=== PATIENT | male | born 1945 | race Caucasian/White ===

== ENCOUNTER → 2019-10-07 | Outpatient (CLI) | payer MEDICARE ==
[~2019-10-07] MED LIST: AGM875T PO; CPR500T PO; PRM12.5SU PR
--- NOTE | 2019-10-07 14:31 | Diagnostic Imaging Report ---
INDICATION: Trauma, pelvic injury. Time of exam 2:00 PM Frontal view of the pelvis was obtained. Femoral acetabular alignment is normal bilaterally. Both femoral heads and necks appear to be intact. Rami are intact. SI joints and symphysis are not widened. No fractures are seen. IMPRESSION: No acute bony abnormality is detected. Dictated by: Dictated on workstation # [id number]
--- NOTE | 2019-10-07 14:31 | Diagnostic Imaging Report ---
INDICATION: Low back injury. Time of exam 2:04 PM Frontal and lateral views of the lumbar spine were obtained. Curvature and alignment is normal. Vertebral body heights are well maintained. No acute compression fracture is detected. There is anterior osteophyte formation L3-L4 level. There are atherosclerotic calcifications within the abdominal aorta. IMPRESSION: Lower lumbar spondylosis. No acute bony abnormality is detected. Dictated by: Dictated on workstation # [id number]
== END ==
LOC: RAD FS 13:53
PROVIDERS: ATTEND Nurse Practitioner Family
DX: S39.92XA Unspecified injury of lower back, initial encounter (principal); S39.93XA Unspecified injury of pelvis, initial encounter; M62.838 Other muscle spasm; M47.816 Spondylosis without myelopathy or radiculopathy, lumbar region
CPT/HCPCS: 72100; 72170

== ENCOUNTER 2019-10-29 05:37 | Outpatient (CLI) | payer MEDICARE ==
[~2019-10-29] VITALS: Ht 182.9 cm; Wt 70.5 kg
[2019-10-29] MEDS ORDERED: LACTATED RINGERS 1,000 ML IV PRN (12:12)
[2019-10-29] MEDS ORDERED: CYCL10TA9 PO (13:26)
[2019-10-30] MEDS ORDERED: PHEN-640 PO (08:42)
[2019-10-30] MEDS ORDERED: SULF1TAB35 PO (08:42)
== END 2019-10-29 13:40 | disposition home or self-care (01) ==
LOC: PREOP 05:37
PROVIDERS: ATTEND Urology
DX: Z01.818 Encounter for other preprocedural examination (principal)

== ENCOUNTER 2019-10-30 06:24 | Day surgery (SDC) | payer MEDICARE, MEDICAID ==
[~2019-10-30] VITALS: Ht 182.9 cm; Wt 70.5 kg
[2019-10-30] VITALS (10 sets, daily range): BP systolic 131–163; BP diastolic 71–99
[~2019-10-30 06:24] MED LIST changes: +CYCL10TA9 PO
[2019-10-30] MEDS ORDERED: ONDANSETRON 4 MG/2 ML (SDV) Z0FRAN ONE (06:50)
[2019-10-30] MEDS ORDERED: proPOfol 200 MG/20 ML (DIPRIVAN) VIAL IV ONE (06:50)
[2019-10-30] MEDS ORDERED: ROCURONIUM 10 MG/ML 5 ML SYRINGE IV ONE (06:50)
[2019-10-30] MEDS ORDERED: LIDOCAINE PF 2% 5 ML (XYLOCAINE) VIAL ONE (06:50)
[2019-10-30] MEDS ORDERED: fentaNYL INJECTION 100 MCG/2 ML AMP ONE (06:51)
[2019-10-30] MEDS ORDERED: MIDAZOLAM 2 MG/2 ML (VERSED) VIAL ONE (06:51)
[2019-10-30] MEDS ORDERED: cefTRIAXone 1,000 MG IV (ROCEPHIN) VIAL ONE ×2 (07:03)
[2019-10-30] MEDS ORDERED: WATER (STERILE) FOR INJECTION 10 ML ONE (07:04)
[2019-10-30] MEDS ORDERED: LACTATED RINGERS 1,000 ML IV PRN (07:08)
--- NOTE | 2019-10-30 07:12 | Progress Note-Pre Operative ---
Pre-Operative Progress Note H&P Reviewed The H&P was reviewed, patient examined and no changes noted. Date Seen by Provider: Oct 30, 2019 Time Seen by Provider: 07:11 Date H&P Reviewed: Oct 30, 2019 Time H&P Reviewed: 07:11 Pre-Operative Diagnosis: LARGE BLADDER TUMOR MARY GRACE TAVAREZ MD Oct 30, 2019 07:12
--- NOTE | 2019-10-30 07:14 | Progress Note-Post Operative ---
Post-Operative Progess Note Surgeon (s)/Auto Vinyl Top Installer (s) Surgeon MARY GRACE TAVAREZ MD Auto Vinyl Top Installer: NONE Pre-Operative Diagnosis LARGE BLADDER TUMOR Post-Operative Diagnosis SAME Procedure & Operative Findings Date of Procedure 10/30/19 Procedure Performed/Findings TURBT Anesthesia Type GENERAL Estimated Blood Loss Estimated blood loss (mL): LESS THAN 50CC Specimens/Packing Specimens Removed BLADDER TUMOR CHIPS AND BASES Packing: NONE MARY GRACE TAVAREZ MD Oct 30, 2019 07:14
[2019-10-30] MEDS ORDERED: ceFAZolin 2 GM IV Premixed 50 ML IV ONE (07:15)
[2019-10-30] MEDS ORDERED: cefTRIAXone 1,000 MG/SWFI 10 ML IV PUSH IV ONE ×2 (07:15)
--- NOTE | 2019-10-30 07:15 | Discharge Inst-Urology ---
Discharge Inst-Urology Reconcile Patient Problems Problems Reviewed?: Yes Final Diagnosis LARGE BLADDER Patient Instructions/Follow Up Plan/Assessment/Instructions Please make appointment to been seen in office in 2 weeks. Rest for 48 hours Increase oral fluids for 48 hours and then as needed. Diet as tolerated. If questions or concerns contact your physician Or seek help at emergency department. MARY GRACE TAVAREZ MD Oct 30, 2019 07:15
[2019-10-30] MEDS ORDERED: SEVOFLURANE (ULTANE) 15 ML INHAL SOLN ONE (08:14)
[2019-10-30] MEDS ORDERED: GLYCOPYRROLATE 0.2 MG/ML (ROBINUL) 2 ML VIAL ONE (08:22)
[2019-10-30] MEDS ORDERED: NEOSTIGMINE 3 MG/3 ML VIAL ONE (08:22)
[2019-10-30] MEDS ORDERED: PHEN-640 PO (08:42)
[2019-10-30] MEDS ORDERED: SULF1TAB35 PO (08:42)
[2019-10-30] MEDS ORDERED: ONDANSETRON 4 MG/2 ML (SDV) Z0FRAN IVP PRN (08:45)
[2019-10-30] MEDS ORDERED: morphine INJ 10 MG/ML 1ML (SYR OR VIAL) IVP ONE (08:45)
--- NOTE | 2019-10-30 08:58 | Anesthesia-General Post-Op ---
General Patient Condition Mental Status/LOC: Same as Preop Cardiovascular: Satisfactory Nausea/Vomiting: Absent Respiratory: Satisfactory Pain: Controlled Complications: Absent Post Op Complications Complications None Follow Up Care/Instructions Patient Instructions None needed. Anesthesia/Patient Condition Patient Condition Patient is doing well, no complaints, stable vital signs, no apparent adverse anesthesia problems. No complications reported per nursing. MAELIA GONZALEZ WELDER FITTER APPRENTICE Oct 30, 2019 08:58
--- NOTE | 2019-10-30 11:11 | OPERATIVE REPORT ---
DATE OF SERVICE: 10/30/2019 PREOPERATIVE DIAGNOSIS: Large bladder tumor. POSTOPERATIVE DIAGNOSIS: Large bladder tumor. OPERATION PERFORMED: Transurethral resection of bladder tumor. SURGEON: Mary Grace Tavarez MD. ANESTHESIA: General. COMPLICATIONS: None. DESCRIPTION OF PROCEDURE: Under satisfactory general anesthesia, the patient in lithotomy position, genitalia were prepped and draped in the usual sterile fashion. Urethra was dilated with Daniella sound to #30-Icelandic to accommodate a 27-Icelandic Arroyo resectoscope. Again, visualized the large papillary tumor occupying the left distal lateral half of the bladder and over the ureteral orifice, which could not be visualized at any time. I went ahead and resected the whole tumor, obtained several bites from the base and sent them separately. Bleeders were cauterized and hemostasis was complete as no need for catheter. There was no further bladder tumor. Estimated blood loss was less than 50 mL, none of which was replaced. The patient tolerated the procedure and anesthesia well and was sent to recovery room in stable condition. Job ID: [id number] DocumentID: [id number] Dictated Date: 10/30/2019 08:42:38 Clinical Quality Manager Date: 10/30/2019 11:09:16 Dictated By: MARY GRACE TAVAREZ MD
== END 2019-10-30 10:30 | disposition home or self-care (01) ==
LOC: SDC 06:24
PROVIDERS: ATTEND Urology
DX: C67.9 Malignant neoplasm of bladder, unspecified (principal); F17.210 Nicotine dependence, cigarettes, uncomplicated
CPT/HCPCS: 87081; 88307

== ENCOUNTER 2019-11-02 18:55 | Emergency (ER) | payer MEDICARE, MEDICAID ==
[~2019-11-02] VITALS: Ht 182.9 cm; Wt 70.5 kg
[~2019-11-02 18:55] MED LIST changes: +PHEN-640 PO; +SULF1TAB35 PO
[2019-11-02 19:05] VITALS: BP 119/85
--- NOTE | 2019-11-02 19:06 | ED GU-Male ---
General Stated Complaint: UNABLE TO URINATE History of Present Illness Date Seen by Provider: Nov 02, 2019 Time Seen by Provider: 19:01 Initial Comments 74-year-old male presents because his urinary catheter is not draining. Patient on Monday had a bladder surgery. On Monday which was yesterday he had a catheter placed because he was having difficulty with urination. Reports that he was draining urine at this morning. Since then he has not been able to having urine drain. He started to get full feeling in have pain. He has no nausea vomiting fevers chills or other systemic complaints. Allergies and Home Medications Allergies Coded Allergies: No Known Drug Allergies (Verified , 10/12/07) Home Medications Cyclobenzaprine HCl 10 Mg Tablet, 10 MG PO TID PRN for MUSCLE SPASMS, (Reported) Phenazopyridine HCl 200 Mg Tablet, 1 TAB PO TID PRN for PAIN-MILD (1-4) Prescribed by: KYLAH ADAMS on 10/30/19841 Sulfamethoxazole/Trimethoprim 1 Each Tablet, 1 EACH PO BID Prescribed by: KYLAH ADAMS on 10/30/19 0842 Patient Home Medication List Home Medication List Reviewed: Yes Review of Systems Review of Systems Constitutional: No chills, No fever Respiratory: no symptoms reported Cardiovascular: no symptoms reported Gastrointestinal: no symptoms reported Genitourinary: see HPI Musculoskeletal: no symptoms reported Skin: no symptoms reported Past Luvzrfl-Pzhhly-Dnnlcr Hx Past Med/Social Hx: Reviewed Nursing Past Med/Soc Hx Patient Social History Type Used: Cigarettes Recent Hopitalizations: No Immunizations Up To Date Tetanus Booster (TDap): More than 5yrs Date of Influenza Vaccine: Dec 13, 2018 Seasonal Allergies Seasonal Allergies: No Past Medical History Surgeries: Yes (LEFT ELBOW (1965).) Respiratory: No Currently Using CPAP: No Currently Using BIPAP: No Cardiac: No Neurological: No Reproductive Disorders: No Genitourinary: Yes (large bladder tumor) Gastrointestinal: No Musculoskeletal: Yes Arthritis, Chronic Back Pain Endocrine: No HEENT: No Cancer: No Psychosocial: No Integumentary: No Blood Disorders: No Physical Exam Vital Signs Capillary Refill : Height, Weight, BMI Height: '" Weight: lbs. oz. kg; 21.07 BMI Method: General Appearance: WD/WN, no apparent distress Cardiovascular: normal peripheral pulses, regular rate, rhythm Respiratory: chest non-tender, lungs clear Gastrointestinal: tenderness (suprapubic) Male: other (Lord catheter in place) Extremities: normal range of motion, non-tender Neurologic/Psychiatric: alert, normal mood/affect, oriented x 3 Skin: normal color, warm/dry Progress/Results/Core Measures Suspected Sepsis SIRS Temperature: Pulse: Respiratory Rate: Blood Pressure / Mean: Results/Orders Vital Signs/I&O Capillary Refill : Departure Impression Primary Impression: Obstructed Lord catheter Qualified Codes: T83.091A - Other mechanical complication of indwelling urethral catheter, initial encounter Disposition: 01 HOME, SELF-CARE Condition: Stable Departure-Patient Inst. Referrals: [facility] (PCP/Family) Primary Care Physician Patient Instructions: How to Care for Your Lord Catheter, Male KEILY HERNANDEZ DO Nov 02, 2019 19:06
== END 2019-11-02 19:41 | disposition home or self-care (01) ==
LOC: EDUNIT# 18:55 → ER FS 18:57
DX: T83.091A Other mechanical complication of indwelling urethral catheter, initial encounter (principal)
CPT/HCPCS: 99282

== ENCOUNTER 2019-11-05 23:50 | Emergency (ER) | payer MEDICARE, MEDICAID ==
[~2019-11-05] VITALS: Ht 182.9 cm; Wt 71.4 kg
[2019-11-06 00:02] VITALS: BP 149/73
[2019-11-06] MEDS ORDERED: TMSL.4C PO (00:10)
--- NOTE | 2019-11-06 00:10 | ED GU-Female ---
General Chief Complaint: - Urinary Stated Complaint: UNABLE TO URINATE Source: patient Exam Limitations: no limitations History of Present Illness Date Seen by Provider: Nov 06, 2019 Time Seen by Provider: 00:06 Initial Comments Patient presents with inability to urinate for the past several hours. History of present illness patient had a bladder biopsy about a week ago with a Lord catheter inserted then which was removed this morning. Since this morning has had increasing difficulty urinating progressing to tonight being unable to urinate and feeling pressure in his lower abdomen. Denies fever or chills, nausea vomiting. Is taking an antibiotic currently and followed by urology. Allergies and Home Medications Allergies Coded Allergies: No Known Drug Allergies (Verified , 10/12/07) Home Medications Cyclobenzaprine HCl 10 Mg Tablet, 10 MG PO TID PRN for MUSCLE SPASMS, (Reported) Phenazopyridine HCl 200 Mg Tablet, 1 TAB PO TID PRN for PAIN-MILD (1-4) Prescribed by: KYLAH ADAMS on 10/30/19 0842 Sulfamethoxazole/Trimethoprim 1 Each Tablet, 1 EACH PO BID Prescribed by: KYLAH ADAMS on 10/30/19 0842 Tamsulosin HCl 0.4 Mg Cap, 0.4 MG PO DAILY Prescribed by: LIBERTY PALAFOX on 11/06/19 0010 Patient Home Medication List Home Medication List Reviewed: Yes Review of Systems Review of Systems Constitutional: see HPI; No dizziness, No fever, No malaise, No weakness Respiratory: No cough, No dyspnea on exertion Cardiovascular: No chest pain, No edema, No palpitations Gastrointestinal: abdominal pain; No nausea, No vomiting Genitourinary: see HPI, pain, urgency Musculoskeletal: No back pain, No joint pain Past Aqlbxxo-Thtxsz-Uhgfci Hx Past Med/Social Hx: Reviewed Nursing Past Med/Soc Hx Patient Social History Alcohol Use: Denies Use Recreational Drug Use: No Smoking Status: Current Everyday Smoker Type Used: Cigarettes Recent Foreign Travel: No Contact w/Someone Who Travel: No Recent Hopitalizations: No Physical Abuse: No Sexual Abuse: No Mistreated: No Fear: No Immunizations Up To Date Tetanus Booster (TDap): More than 5yrs Date of Influenza Vaccine: Dec 13, 2018 Seasonal Allergies Seasonal Allergies: No Past Medical History Surgeries: Yes (LEFT ELBOW (1965).) Respiratory: No Currently Using CPAP: No Currently Using BIPAP: No Cardiac: No Neurological: No Reproductive Disorders: No Genitourinary: Yes (large bladder tumor) Gastrointestinal: No Musculoskeletal: Yes Arthritis, Chronic Back Pain Endocrine: No HEENT: No Cancer: No Psychosocial: No Integumentary: No Blood Disorders: No Physical Exam Vital Signs Vital Signs - First Documented 11/06/19 00:02 Temp 36.3 Pulse 68 Resp 18 B/P (MAP) 149/73 (98) Pulse Ox 99 O2 Delivery Room Air Capillary Refill : Height, Weight, BMI Height: '" Weight: lbs. oz. kg; 21.00 BMI Method: General Appearance: WD/WN, no apparent distress Cardiovascular: regular rate, rhythm, no edema, no gallop Respiratory: chest non-tender, lungs clear, normal breath sounds Gastrointestinal: normal bowel sounds, soft; No distended, No guarding, No rebound; tenderness (mild suprapubic) Progress/Results/Core Measures Suspected Sepsis SIRS Temperature: Pulse: Respiratory Rate: Blood Pressure / Mean: Results/Orders My Orders Orders - LIBERTY PALAFOX DO Urinalysis (11/05/19 23:56) Catheter(Urinary) Insert & Ass 03,15 (11/06/19 00:05) Vital Signs/I&O 11/06/19 00:02 Temp 36.3 Pulse 68 Resp 18 B/P (MAP) 149/73 (98) Pulse Ox 99 O2 Delivery Room Air Capillary Refill : Progress Note : Progress Note bladder scan with 1000cc. post void residual > 1 liter, monica urine without clots significant relief p Cath insertion Discussed Urology follow-up. Pt agrees and comprehends Departure Impression Primary Impression: Bladder outlet obstruction Disposition: 01 HOME, SELF-CARE Condition: Improved Departure-Patient Inst. Decision time for Depature: 00:09 Referrals: [facility] (PCP/Family) Primary Care Physician Patient Instructions: Urinary Obstruction (DC) Add. Discharge Instructions: Call Dr Ruiz's office tomorrow to notify them of your ER visit for inability to urinate and that we needed to insert a catheter for you. Schedule a follow up appointment with them to have your catheter removed. All discharge instructions reviewed with patient and/or family. Voiced understanding. Scripts Tamsulosin HCl (Flomax) 0.4 Mg Cap 0.4 MG PO DAILY, #30 CAP Prov: ROVENSTINE,LIBERTY L DO 11/06/19 LIBERTY PALAFOX DO Nov 06, 2019 00:10
[2019-11-06 00:44] LABS: BACTERIA,URINE TRACE /HPF; BILIRUBIN,URINE NEGATIVE (NEGATIVE); CLARITY,URINE CLEAR; COLOR,URINE YELLOW; GLUCOSE, URINE (UA) NEGATIVE (NEGATIVE); KETONES,URINE NEGATIVE (NEGATIVE); LEUKOCYTE ESTERASE ,URINE TRACE (NEGATIVE); NITRITE,URINE NEGATIVE (NEGATIVE); PROTEIN,URINE NEGATIVE (NEGATIVE)
== END 2019-11-06 00:35 | disposition home or self-care (01) ==
LOC: EDUNIT# 23:50 → ER FS 23:52
DX: N32.0 Bladder-neck obstruction (principal); F17.210 Nicotine dependence, cigarettes, uncomplicated
CPT/HCPCS: 51702; 81000; 87088

== ENCOUNTER → 2020-02-13 | Outpatient (CLI) | payer MEDICARE, MEDICAID ==
[~2020-02-13] MED LIST changes: +TMSL.4C PO
--- NOTE | 2020-02-13 11:22 | Diagnostic Imaging Report ---
CT Lung Screening INDICATION: Screening for lung cancer, 60 pack year history of smoking, current smoker. TECHNIQUE: Noncontrast, low-dose CT imaging performed according to the lung cancer screening protocol. Auto Exposure Controls were utilize during the CT exam to meet ALARA standards for radiation dose reduction. COMPARISON: None available. FINDINGS: A few calcified mediastinal and hilar lymph nodes are present. No definite pathologically enlarged lymph nodes within the chest. Mild scattered vascular calcifications. No aneurysmal dilatation of the thoracic aorta. The heart is within normal limits in size. No pericardial effusion. No pleural effusion. No pneumothorax. Minimal left lower lobe scarring and/or atelectasis. Mild biapical pleural parenchymal scarring. Calcified granuloma within the medial aspect of the right upper lobe. Minimal right basilar scarring and/or atelectasis. The minimally visualized upper abdomen is unremarkable. No acute osseous abnormality with mild scattered osseous degenerative changes. IMPRESSION: No acute abnormality. No suspicious pulmonary nodule or opacity. LUNG-RADS CATEGORY:1: Negative Follow-up: Continued annual screening with low-dose CT in 12 months. Dictated by: Dictated on workstation # [id number]
== END ==
LOC: RAD 09:18
PROVIDERS: ATTEND Family Medicine
DX: Z12.2 Encounter for screening for malignant neoplasm of respiratory organs (principal); F17.210 Nicotine dependence, cigarettes, uncomplicated

== ENCOUNTER 2021-11-27 18:48 | Emergency (ER) | payer MEDICARE, MEDICAID ==
[~2021-11-27] VITALS: Ht 182.8 cm; Wt 73.0 kg
[~2021-11-27 18:48] MED LIST changes: +CYCL10TA25 PO; -CYCL10TA9 PO; -SULF1TAB35 PO; +SULF1TAB38 PO
--- NOTE | 2021-11-27 19:11 | ED Lower Extremity ---
General Chief Complaint: Lower Extremity Stated Complaint: WC RT KNEE PAIN Source: patient Exam Limitations: no limitations History of Present Illness Date Seen by Provider: Nov 27, 2021 Time Seen by Provider: 18:49 Initial Comments 76-year-old male with no pertinent past medical history coming in due to right knee pain. He was working at [employer], pushing carts, when he felt a sharp severe pain in his right medial knee., Comes and goes quickly when it occurs. It is worse with walking, better with rest. Has not taken any medicine for it as of yet. Denies ever having pain like this before. Denies falling or hitting his knee. He is unsure if he twisted it somehow. Otherwise denying any other acute complaints. Allergies and Home Medications Allergies Coded Allergies: No Known Drug Allergies (Verified , 10/12/07) Patient Home Medication List Home Medication List Reviewed: Yes Cyclobenzaprine HCl (Cyclobenzaprine HCl) 10 Mg Tablet, 10 MG PO TID PRN for MUSCLE SPASMS, (Reported) Entered as Reported by: CASIE MALONEY on 10/29/19 1326 Phenazopyridine HCl (Pyridium) 200 Mg Tablet, 1 TAB PO TID PRN for PAIN-MILD (1- 4) Prescribed by: KYLAH ADAMS on 10/30/19 0842 Sulfamethoxazole/Trimethoprim (Bactrim Ds Tablet) 1 Each Tablet, 1 EACH PO BID Prescribed by: KYLAH ADAMS on 10/30/19 0842 Tamsulosin HCl (Flomax) 0.4 Mg Cap, 0.4 MG PO DAILY Prescribed by: LIBERTY PALAFOX on 11/06/19 0010 Review of Systems Constitutional: no symptoms reported EENTM: no symptoms reported Respiratory: no symptoms reported Cardiovascular: no symptoms reported Genitourinary: no symptoms reported Musculoskeletal: see HPI Skin: no symptoms reported Psychiatric/Neurological: No Symptoms Reported All Other Systems Reviewed Negative Unless Noted: Yes Past Hjxifgp-Htlqwo-Uvtseu Hx Patient Social History Tobacco Use?: Yes Tobacco type used: Cigarettes Smoking Status: Current Everyday Smoker Smokeless Tobacco Frequency: Unknown if Ever Used Use of E-Cig and/or Vaping dev: No Use of E-Cig and/or Vaping Norberto: Never a User Substance use?: No Alcohol Use?: No Immunizations Up To Date Tetanus Booster (TDap): More than 5yrs Influenza Vaccine Up-to-Date: No; Not Current First/Initial COVID19 Vaccinat: Date? Second COVID19 Vaccination Jacques: Date? COVID19 Vaccine Correctional [employer]al: Oscar Seasonal Allergies Seasonal Allergies: No Past Medical History Surgery/Hospitalization HX: Elbow surgery, Bladder cyst removal Surgeries: Yes (LEFT ELBOW (1964).) Respiratory: No Currently Using CPAP: No Currently Using BIPAP: No Cardiac: No Neurological: No Reproductive Disorders: No Genitourinary: Yes (large bladder tumor) Gastrointestinal: No Musculoskeletal: Yes Arthritis, Chronic Back Pain Endocrine: No HEENT: No Cancer: No Psychosocial: No Integumentary: No Blood Disorders: No Physical Exam Vital Signs Vital Signs - First Documented 11/27/21 18:51 Temp 36.8 Pulse 80 Resp 18 B/P (MAP) 109/64 (79) Pulse Ox 98 O2 Delivery Room Air Capillary Refill : Height, Weight, BMI Height: '" Weight: lbs. oz. kg; 21.00 BMI Method: General Appearance: WD/WN, no apparent distress HEENT: PERRL/EOMI, normal ENT inspection, pharynx normal Neck: non-tender, full range of motion, supple, normal inspection Cardiovascular: regular rate, rhythm, no edema, no murmur Respiratory: chest non-tender, lungs clear, normal breath sounds, no respiratory distress, no accessory muscle use Gastrointestinal: normal bowel sounds, non tender, soft; No distended, No guarding, No rebound Hips: bilateral hip non-tender, bilateral hip normal inspection, bilateral hip normal range of motion, bilateral hip no evidence of injury Legs: bilateral leg non-tender, bilateral leg normal inspection, bilateral leg normal range of motion, bilateral leg no evidence of injury Knees: left knee non-tender; bilateral knee normal inspection, bilateral knee normal range of motion; right knee bone tenderness (Medial joint line tenderness on the right knee, normal ACL, PCL, LCL, MCL testing, antalgic gait) Neurologic/Tendon: normal sensation, normal motor functions, normal tendon functions Neurologic/Psychiatric: no motor/sensory deficits, alert, normal mood/affect Skin: normal color, warm/dry Lymphatic: no adenopathy Progress/Results/Core Measures Results/Orders My Orders Orders - TAHIRA TAO MD Knee 3 View Right (11/27/21 19:04) Acetaminophen Tablet (Tylenol Tablet) (11/27/21 19:15) Medications Given in ED Current Medications Medications Dose Ordered Sig/Zohra Route Start Time Stop Time Status Last Admin Dose Admin Acetaminophen 1,000 mg ONCE ONCE PO 11/27/21 19:15 11/27/21 19:16 DC 11/27/21 19:20 1,000 MG Vital Signs/I&O 11/27/21 11/27/21 18:51 19:20 Temp 36.8 36.8 Pulse 80 Resp 18 B/P (MAP) 109/64 (79) Pulse Ox 98 O2 Delivery Room Air Progress Progress Note : Progress Note 76-year-old male with above history coming in due to right medial knee pain after pushing carts at work at [employer] ABCs were intact and vitals were stable on presentation. Physical exam with medial joint line tenderness. X-ray ordered and interpreted by me showing very mild medial joint space narrowing. Differential for his pain could be strain versus arthritis versus meniscal tear versus some other etiology. X-ray does not show any fracture or dislocation. Given Tylenol for pain. He will need to follow-up with orthopedics for clearance, but I discussed if he feels up to it he can go back to work on Monday when he is next scheduled. Diagnostic Imaging Diagonstic Imaging: Xray (right knee) Comments NAME: MILAGROS COOK [facility] REC#: [id number] PT STATUS: REG ER : 1945 PHYSICIAN: TAHIRA TAO MD ADMIT DATE: 11/27/21/ER FS Draft Date of Exam:11/27/21 KNEE 3 VIEW RIGHT EXAM: Knee 3 view right. INDICATION: Right medial knee pain. COMPARISON: None. FINDINGS: No fracture or malalignment. No right knee joint effusion. Vascular calcifications. IMPRESSION: No acute radiographic finding in the right knee. Dictated on workstation # [id number] Dict: 11/27/211923 Trans: 11/27/211927 PJE [id number] Interpreted by: BLAISE SHIN MD Electronically signed by: Departure Impression Primary Impression: Right knee pain Qualified Codes: M25.561 - Pain in right knee Disposition: 01 HOME, SELF-CARE Condition: Stable Departure-Patient Inst. Decision time for Depature: 19:25 Referrals: JASON ABDI MD (PCP) Primary Care Physician Patient Instructions: Knee Pain ED Add. Discharge Instructions: Follow-up with [facility] here in town regarding your pain. Use the Denis bandage as needed for pressure to help with the pain. Also you can take ibuprofen and/or Tylenol as needed. Work/School Note: Work Release Form Date Seen in the Emergency Department: Nov 27, 2021 Return to Work: Dec 01, 2021 Restrictions: Need Release from Doctor Other Restrictions Listed Below: If pain is gone, ok to work on 12/01, otherwise will need ortho clearance TAHIRA TAO MD Nov 27, 2021 19:11
[2021-11-27] MEDS ORDERED: ACETAMINOPHEN 500 MG TAB (TYLENOL) PO ONE (19:15)
--- NOTE | 2021-11-27 19:29 | Diagnostic Imaging Report ---
EXAM: Knee 3 view right. INDICATION: Right medial knee pain. COMPARISON: None. FINDINGS: No fracture or malalignment. No right knee joint effusion. Vascular calcifications. IMPRESSION: No acute radiographic finding in the right knee. Dictated by: Dictated on workstation # [id number]
[2021-11-27 19:30] VITALS: BP 109/64
== END 2021-11-27 19:30 | disposition home or self-care (01) ==
LOC: EDUNIT# 18:48 → ER FS 18:49
DX: M25.561 Pain in right knee (principal); F17.210 Nicotine dependence, cigarettes, uncomplicated; X58.XXXA Exposure to other specified factors, initial encounter; Y93.89 Activity, other specified; Y92.512 Supermarket, store or market as the place of occurrence of the external cause; Y99.0 Civilian activity done for income or pay
CPT/HCPCS: 73562

== ENCOUNTER 2022-03-12 20:32 | Emergency (ER) | payer MEDICARE, MEDICAID ==
[2022-03-12 20:51] VITALS: BP 135/95
--- NOTE | 2022-03-12 20:52 | ED EENT ---
History of Present Illness General Chief Complaint: Foreign Body Stated Complaint: FOREIGN OBJECT INRIGHT EAR Source: patient History of Present Illness Date Seen by Provider: Mar 12, 2022 Time Seen by Provider: 20:37 Initial Comments 76 yo male presents with complaints of the tip from his hearing aid coming off and getting stuck in his left ear. he had tried removing it at home but kept pushing it further in and against his eardrum. he stopped because it was hurting. He denies having any drainage from his ear, fever, chills, cough. He had no family members around anybody else to try to get the tip out of his ear canal. Location: ear (L) Prearrival Treatment: other (Attempted to remove with tweezers) Associated Symptoms: change in hearing (Decreased hearing since his hearing aid is not in place); No cough, No drooling, No ear drainage, No facial pain/swelling, No fever, No malaise, No nasal congestion/drainage, No poor fluid intake, No poor solids intake, No sinus infection, No sore throat, No tooth pain, No voice change Allergies and Home Medications Allergies Coded Allergies: No Known Drug Allergies (Verified , 10/12/07) Patient Home Medication List Home Medication List Reviewed: Yes Cyclobenzaprine HCl (Cyclobenzaprine HCl) 10 Mg Tablet, 10 MG PO TID PRN for MUSCLE SPASMS, (Reported) Entered as Reported by: CASIE MALONEY on 10/29/19 1326 Phenazopyridine HCl (Pyridium) 200 Mg Tablet, 1 TAB PO TID PRN for PAIN-MILD (1- 4) Prescribed by: KYLAH ADAMS on 10/30/19 0842 Sulfamethoxazole/Trimethoprim (Bactrim Ds Tablet) 1 Each Tablet, 1 EACH PO BID Prescribed by: KYLAH ADAMS on 10/30/19 0842 Tamsulosin HCl (Flomax) 0.4 Mg Cap, 0.4 MG PO DAILY Prescribed by: LIBERTY PALAFOX on 11/06/19 0010 Review of Systems Review of Systems Constitutional: No chills, No fever Eyes: No Symptoms Reported Ears: See HPI Nose: no symptoms reported All Other Systems Reviewed Negative Unless Noted: Yes (Negative excepted noted.) Past Gogubdb-Ogutsx-Gkrjjz Hx Patient Social History Tobacco Use?: No Use of E-Cig and/or Vaping dev: No Substance use?: No Alcohol Use?: No Immunizations Up To Date Tetanus Booster (TDap): More than 5yrs First/Initial COVID19 Vaccinat: Date? Second COVID19 Vaccination Jacques: Date? Seasonal Allergies Seasonal Allergies: No Past Medical History Surgery/Hospitalization HX: Elbow surgery, Bladder cyst removal, Hard of hearing Surgeries: Yes (LEFT ELBOW (1964).) Respiratory: No Currently Using CPAP: No Currently Using BIPAP: No Cardiac: No Neurological: No Reproductive Disorders: No Genitourinary: Yes (large bladder tumor) Gastrointestinal: No Musculoskeletal: Yes Arthritis, Chronic Back Pain Endocrine: No HEENT: No Cancer: No Psychosocial: No Integumentary: No Blood Disorders: No Physical Exam Vital Signs Vital Signs - First Documented 03/12/22 20:38 Temp 37.0 Pulse 87 Resp 18 B/P (MAP) 135/95 (108) Pulse Ox 100 O2 Delivery Room Air Height, Weight, BMI Height: '" Weight: lbs. oz. kg; 21.00 BMI Method: General Appearance: WD/WN, no apparent distress Ears: left ear foreign body (white rubber tip from his hearing aid in canal on left side, hard dry cerumen against TM ) Neurologic/Psychiatric: alert, oriented x 3 Skin: normal color, warm/dry Procedures/Interventions I&D : Site: left external auditory canal Progress Using a pair of alligator forceps the ear was stabilized and retraction placed on the pinna to help open his canal and advanced the forceps. I was able to grasp the tip of the hearing aid and remove it easily with the alligator forceps. He had no active bleeding. He did have dry cerumen against his TM. Patient tolerated procedure well without any immediate complication. Progress/Results/Core Measures Results/Orders Vital Signs/I&O 03/12/22 03/12/22 20:38 20:51 Temp 37.0 37.0 Pulse 87 87 Resp 18 18 B/P (MAP) 135/95 (108) 135/95 Pulse Ox 100 100 O2 Delivery Room Air Room Air Progress Progress Note : Progress Note Patient at risk of having diagnosis with ruptured TM, external auditory canal infection, cerumen impaction. On physical exam he did have a small rubber tip from as hearing aid present in the external auditory canal on the left. This was easily removed without any immediate complications using alligator forceps. He tolerated the removal well without any immediate complication. He had no bleeding or signs of trauma after removal. He did have some dry cerumen against his TM. Counseled on follow-up and return precautions. Advised not to use the tip that was retrieved as it seemed to be loose when reattached to his hearing aid. Departure Impression Primary Impression: Foreign body in ear Qualified Codes: T16.2XXA - Foreign body in left ear, initial encounter Disposition: HOME, SELF-CARE Condition: Stable Departure-Patient Inst. Decision time for Depature: 20:51 Referrals: JASON ABDI MD (PCP) Primary Care Physician [facility] (Family) Primary Care Physician Patient Instructions: Foreign Body in Ear Add. Discharge Instructions: Try a different tip on your hearing aid to see if it would have a tighter fit. Follow up with clinic for continued problems with the device and ear wax build up. All discharge instructions reviewed with patient and/or family. Voiced understanding. TWILA MADDOX MD Mar 12, 2022 20:52
== END 2022-03-12 20:53 | disposition home or self-care (01) ==
LOC: EDUNIT# 20:32 → ER FS 20:36
DX: T16.2XXA Foreign body in left ear, initial encounter (principal); Z28.310 Unvaccinated for COVID-19; X58.XXXA Exposure to other specified factors, initial encounter
CPT/HCPCS: 99281

== ENCOUNTER 2022-07-11 10:55 | Emergency (ER) | payer MEDICARE, MEDICAID ==
[~2022-07-11] VITALS: Ht 180.3 cm; Wt 66.7 kg
[2022-07-11 10:59] VITALS: BP 128/85
--- NOTE | 2022-07-11 11:05 | ED EENT ---
History of Present Illness General Stated Complaint: LT EAR FOREIGN OBJECT History of Present Illness Date Seen by Provider: July 11, 2022 Time Seen by Provider: 11:00 Initial Comments 76-year-old gentleman has a plastic tip of a hearing aid stuck in his left ear. He reports that his dog jumped up on him and knocked his hearing aid out and the rubber piece got stuck in it. Patient denies any other complaints Allergies and Home Medications Allergies Coded Allergies: No Known Drug Allergies (Verified , 10/12/07) Patient Home Medication List Home Medication List Reviewed: Yes Cyclobenzaprine HCl (Cyclobenzaprine HCl) 10 Mg Tablet, 10 MG PO TID PRN for MUSCLE SPASMS, (Reported) Entered as Reported by: CASIE MALONEY on 10/29/19 1326 Phenazopyridine HCl (Pyridium) 200 Mg Tablet, 1 TAB PO TID PRN for PAIN-MILD (1- 4) Prescribed by: KYLAH ADAMS on 10/30/19 0842 Sulfamethoxazole/Trimethoprim (Bactrim Ds Tablet) 1 Each Tablet, 1 EACH PO BID Prescribed by: KYLAH ADAMS on 10/30/19 0842 Tamsulosin HCl (Flomax) 0.4 Mg Cap, 0.4 MG PO DAILY Prescribed by: LIBERTY PALAFOX on 11/06/19 0010 Review of Systems Review of Systems Constitutional: No chills, No fever Ears: See HPI Nose: no symptoms reported Mouth: no symptoms reported Throat: no symptoms reported Respiratory: no symptoms reported Cardiovascular: no symptoms reported Gastrointestinal: no symptoms reported Musculoskeletal: no symptoms reported Past Fegmyfu-Zchfes-Nmlzpg Hx Immunizations Up To Date Tetanus Booster (TDap): More than 5yrs First/Initial COVID19 Vaccinat: Date? Second COVID19 Vaccination Jacques: Date? Seasonal Allergies Seasonal Allergies: No Past Medical History Surgery/Hospitalization HX: Elbow surgery, Bladder cyst removal, Hard of hearing Surgeries: Yes (LEFT ELBOW (1964).) Respiratory: No Currently Using CPAP: No Currently Using BIPAP: No Cardiac: No Neurological: No Reproductive Disorders: No Genitourinary: Yes (large bladder tumor) Gastrointestinal: No Musculoskeletal: Yes Arthritis, Chronic Back Pain Endocrine: No HEENT: No Cancer: No Psychosocial: No Integumentary: No Blood Disorders: No Physical Exam Vital Signs Vital Signs - First Documented 07/11/22 10:59 Temp 36.5 Pulse 70 Resp 16 B/P (MAP) 128/85 (99) O2 Delivery Room Air Height, Weight, BMI Height: '" Weight: lbs. oz. kg; 21.00 BMI Method: General Appearance: WD/WN, no apparent distress Ears: left ear foreign body (Soft rubber tip hearing aid) Cardiovascular: normal peripheral pulses, regular rate, rhythm Respiratory: no respiratory distress, no accessory muscle use Procedures/Interventions Ear : Ear Location: Left Use of: Forceps (Alligator) Progress/Conclusion Soft rubber tip of hearing aid removed with by alligator clamp without any difficulty. Progress/Results/Core Measures Results/Orders Vital Signs/I&O 07/11/22 10:59 Temp 36.5 Pulse 70 Resp 16 B/P (MAP) 128/85 (99) O2 Delivery Room Air Progress Progress Note : Progress Note Soft rubber tip of a hearing aid was removed with no difficulty with alligator forceps. Patient tolerated well. He is stable and discharged home Departure Impression Primary Impression: Foreign body in ear Qualified Codes: T16.2XXA - Foreign body in left ear, initial encounter Disposition: HOME, SELF-CARE Condition: Stable Departure-Patient Inst. Referrals: JASON ABDI MD (PCP) Primary Care Physician [facility] (Family) Primary Care Physician Patient Instructions: Removal of Foreign Body in Ear, Child Add. Discharge Instructions: Follow-up with your primary care provider as needed KEILY HERNANDEZ DO July 11, 2022 11:05
== END 2022-07-11 11:21 | disposition home or self-care (01) ==
LOC: EDUNIT# 10:55 → ER FS 10:58
DX: T16.2XXA Foreign body in left ear, initial encounter (principal); Z28.310 Unvaccinated for COVID-19
CPT/HCPCS: 99281

== ENCOUNTER 2023-01-17 19:31 | Observation (INO) | payer MEDICARE, MEDICAID ==
[~2023-01-17] VITALS: Ht 183 cm; Wt 66.8 kg
[2023-01-17 19:45] LABS: BASOPHILS % (AUTO) 0 % (0-10); EOSINOPHILS # (AUTO) 0.1 10^3/uL (0.0-0.3); EOSINOPHILS % (AUTO) 2 % (0-10); HEMATOCRIT 39 % (40-54); HEMOGLOBIN 13.1 g/dL (13.3-17.7); LYMPHOCYTES # (AUTO) 1.9 10^3/uL (1.0-4.0); LYMPHOCYTES % (AUTO) 24 % (12-44); MEAN CORPUSCULAR HEMOGLOBIN 32 pg (25-34); MEAN CORPUSCULAR HGB CONC 33 g/dL (32-36); MEAN CORPUSCULAR VOLUME 95 fL (80-99); MEAN PLATELET VOLUME 9.6 fL (9.0-12.2); MONOCYTES # (AUTO) 0.6 10^3/uL (0.0-1.0); MONOCYTES % (AUTO) 8 % (0-12); NEUTROPHILS # (AUTO) 5.2 10^3/uL (1.8-7.8); NEUTROPHILS % (AUTO) 66 % (42-75); PLATELET COUNT 201 10^3/uL (130-400); WHITE BLOOD COUNT 7.8 10^3/uL (4.3-11.0)
[2023-01-17] MEDS ORDERED: KETOROLAC INJ 15 MG/ML VIAL IVP STA (19:46)
[2023-01-17] MEDS ORDERED: fentaNYL INJECTION 100 MCG/2 ML VIAL IVP STA (19:46)
[2023-01-17] MEDS ORDERED: PANTOPRAZOLE INJECTION 40 MG VIAL IV STA (19:46)
[2023-01-17] MEDS ORDERED: NS IV 1000 ML 1,000 ML IV STA ×2 (19:46→22:34)
[2023-01-17 20:04] LABS: POTASSIUM 3.7 MMOL/L (3.6-5.0)
[2023-01-17 20:05] LABS: PROTHROMBIN TIME PATIENT 13.4 SEC (12.2-14.7)
[2023-01-17 20:09] LABS: ALANINE AMINOTRANSFERASE 10 U/L (0-55); ALBUMIN 4.1 GM/DL (3.2-4.5); ALKALINE PHOSPHATASE 75 U/L (40-136); BILIRUBIN,TOTAL 0.4 MG/DL (0.1-1.0); BUN/CREATININE RATIO 12; CALCIUM 8.8 MG/DL (8.5-10.1); CARBON DIOXIDE 28 MMOL/L (21-32); CHLORIDE 104 MMOL/L (98-107); CREATININE SERUM 0.82 MG/DL (0.60-1.30); GFR ESTIMATED 92; GLUCOSE 191 MG/DL (70-105); SODIUM 139 MMOL/L (135-145); TOTAL PROTEIN 6.7 GM/DL (6.4-8.2)
--- NOTE | 2023-01-17 20:09 | ED GI ---
General Chief Complaint: Abdominal/GI Problems Stated Complaint: ABD PAIN Nursing Triage Note: Patient to ER via [facility] c/o abdominal pain. Patient states the pain near umbilicus started approx 1330. pain is constant and "feels like a sledgehammer hitting me." Patient states he has had nausea, diarrhea, and sweating with the pain. 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 18RAC. Patient alert and oriented x4 Source of Information: Patient, EMS History of Present Illness Date Seen by Provider: Jan 17, 2023 Time Seen by Provider: 19:32 Initial Comments 77-year-old male presenting by EMS from home with complaints of epigastric abdominal pain. He states that he had nausea and diarrhea. This started around 130 this afternoon. He states he has not eaten anything today as nothing sounds good. He denies any prior surgery on his abdomen. He rates his pain at a 10 out of 10. He does drink alcohol as a can of beer nightly. He denies any radiation of the pain and states it feels like someone hit him in the gut with a sledgehammer. The pain again does not radiate or move anywhere. He denies having pain like this previously. He did receive Zofran and fentanyl by EMS but continued to complain of pain as 10 out of 10 on arrival to the ED. Timing/Duration: 4-6 Hours Severity/Quality: Severe, Other (Like he was hit with a sledgehammer) Location: Epigastric Radiation: No Radiation Activities at Onset: None Associated Symptoms: No Back Pain, No Chest Pain, No Diaphoresis, No Fever/Chills, No Fatigue, No Headache, No Heartburn; Nausea/Vomiting (Nausea but no vomiting); No Shortness of Air, No Swelling/Mass in Abdomen, No Syncope, No Weakness Allergies and Home Medications Allergies Coded Allergies: No Known Drug Allergies (Verified , 10/12/07) Patient Home Medication List Home Medication List Reviewed: Yes Cyclobenzaprine HCl (Cyclobenzaprine HCl) 10 Mg Tablet, 10 MG PO TID PRN for MUSCLE SPASMS, (Reported) Entered as Reported by: CASIE MALONEY on 10/29/19 1326 Phenazopyridine HCl (Pyridium) 200 Mg Tablet, 1 TAB PO TID PRN for PAIN-MILD (1- 4) Prescribed by: KYLAH ADAMS on 10/30/19 0842 Sulfamethoxazole/Trimethoprim (Bactrim Ds Tablet) 1 Each Tablet, 1 EACH PO BID Prescribed by: KYLAH ADAMS on 10/30/19 0842 Tamsulosin HCl (Flomax) 0.4 Mg Cap, 0.4 MG PO DAILY Prescribed by: LIBERTY PALAFOX on 11/06/19 0010 Review of Systems Review of Systems Constitutional: No chills, No fever EENTM: No Symptoms Reported Respiratory: No Symptoms Reported Cardiovascular: No Symptoms Reported Gastrointestinal: See HPI Genitourinary: No Symptoms Reported Musculoskeletal: no symptoms reported Skin: no symptoms reported Psychiatric/Neurological: No Symptoms Reported Past Yjitcrp-Vaduds-Ghmrrj Hx Patient Social History Tobacco Use?: Yes Tobacco type used: Cigarettes Smoking Status: Current Everyday Smoker Substance use?: No Alcohol Use?: Yes Alcohol type: Beer Alcohol Frequency: Daily Immunizations Up To Date Tetanus Booster (TDap): More than 5yrs First/Initial COVID19 Vaccinat: Date? Second COVID19 Vaccination Jacques: Date? Third COVID19 Vaccination Date: Date? Seasonal Allergies Seasonal Allergies: No Past Medical History Surgery/Hospitalization HX: Elbow surgery, Bladder cyst removal, Hard of hearing Surgeries: Yes (LEFT ELBOW (1965).) Respiratory: No Currently Using CPAP: No Currently Using BIPAP: No Cardiac: No Neurological: No Reproductive Disorders: No Genitourinary: Yes (large bladder tumor) Gastrointestinal: No Musculoskeletal: Yes Arthritis, Chronic Back Pain Endocrine: No HEENT: No Cancer: No Psychosocial: No Integumentary: No Blood Disorders: No Physical Exam Vital Signs Vital Signs - First Documented 01/17/23 19:31 Temp 34.3 Pulse 43 Resp 16 B/P (MAP) 167/67 (100) Pulse Ox 99 O2 Delivery Room Air Capillary Refill : Less Than 3 Seconds Height/Weight/BMI Height: '" Weight: lbs. oz. kg; 20.00 BMI Method: General Appearance: WD/WN, no apparent distress HEENT: PERRL/EOMI Respiratory: chest non-tender, lungs clear, normal breath sounds, no respiratory distress, no accessory muscle use Cardiovascular: normal peripheral pulses, regular rate, rhythm Gastrointestinal: normal bowel sounds, soft, no pulsatile mass; No distended, No guarding, No rebound; tenderness (Epigastric) Extremities: normal range of motion, non-tender, normal capillary refill Neurologic/Psychiatric: alert, oriented x 3 Skin: normal color, warm/dry Focused Exam Lactate Level 01/17/23 21:05: Lactic Acid Level 1.52 Lactic Acid Level Laboratory Tests Test 01/17/23 21:05 Lactic Acid Level 1.52 MMOL/L (0.50-2.00) Progress/Results/Core Measures Results/Orders Lab Results Laboratory Tests Test 01/17/23 19:34 01/17/23 21:05 Range/Units White Blood Count 7.8 4.3-11.0 10^3/uL Red Blood Count 4.14 L 4.30-5.52 10^6/uL Hemoglobin 13.1 L 13.3-17.7 g/dL Hematocrit 39 L 40-54 % Mean Corpuscular Volume 95 80-99 fL Mean Corpuscular Hemoglobin 32 25-34 pg Mean Corpuscular Hemoglobin Concent 33 32-36 g/dL Red Cell Distribution Width 12.5 10.0-14.5 % Platelet Count 201 130-400 10^3/uL Mean Platelet Volume 9.6 9.0-12.2 fL Immature Granulocyte % (Auto) 0 % Neutrophils (%) (Auto) 66 42-75 % Lymphocytes (%) (Auto) 24 12-44 % Monocytes (%) (Auto) 8 0-12 % Eosinophils (%) (Auto) 2 0-10 % Basophils (%) (Auto) 0 0-10 % Neutrophils # (Auto) 5.2 1.8-7.8 10^3/uL Lymphocytes # (Auto) 1.9 1.0-4.0 10^3/uL Monocytes # (Auto) 0.6 0.0-1.0 10^3/uL Eosinophils # (Auto) 0.1 0.0-0.3 10^3/uL Basophils # (Auto) 0.0 0.0-0.1 10^3/uL Immature Granulocyte # (Auto) 0.0 0.0-0.1 10^3/uL Prothrombin Time 13.4 12.2-14.7 SEC INR Comment 1.0 0.8-1.4 Activated Partial Thromboplast Time 27 24-35 SEC Sodium Level 139 135-145 MMOL/L Potassium Level 3.7 3.6-5.0 MMOL/L Chloride Level 104 98-107 MMOL/L Carbon Dioxide Level 28 21-32 MMOL/L Anion Gap 7 5-14 MMOL/L Blood Urea Nitrogen 10 7-18 MG/DL Creatinine 0.82 0.60-1.30 MG/DL Estimat Glomerular Filtration Rate 92 BUN/Creatinine Ratio 12 Glucose Level 191 H 70-105 MG/DL Calcium Level 8.8 8.5-10.1 MG/DL Corrected Calcium 8.7 8.5-10.1 MG/DL Total Bilirubin 0.4 0.1-1.0 MG/DL Aspartate Amino Transf (AST/SGOT) 15 5-34 U/L Alanine Aminotransferase (ALT/SGPT) 10 0-55 U/L Alkaline Phosphatase 75 40-136 U/L Troponin I < 0.30 <0.30 NG/ML Pro-B-Type Natriuretic Peptide 52.2 <450.0 PG/ML Total Protein 6.7 6.4-8.2 GM/DL Albumin 4.1 3.2-4.5 GM/DL Lipase 20 8-78 U/L Serum Alcohol < 10 <10 MG/DL Lactic Acid Level 1.52 0.50-2.00 MMOL/L My Orders Orders - TWILA MADDOX MD Comprehensive Metabolic Panel (01/17/23 19:35) Lipase (01/17/23 19:35) Ua Culture If Indicated (01/17/23 19:35) Ed Iv/Invasive Line Start (01/17/23 19:35) Cbc And Automated Diff (01/17/23 19:35) Ct Abdomen/Pelvis W (01/17/23 19:35) Lactic Acid Analyzer (01/17/23:35) Protime With Inr (01/17/23 19:35) Partial Thromboplastin Time (01/17/23:35) Ekg Tracing (01/17/23:35) Troponin I Fs (01/17/23 19:35) Probnp Fs (01/17/23:35) Ketorolac Injection (Ketorolac Injection (01/17/23 19:46) Pantoprazole Injection (Pantoprazole Inj (01/17/23 19:46) Fentanyl Injection (Fentanyl Injection (01/17/23 19:46) Ns Iv 1000 Ml (Ns Iv 1000 Ml) (01/17/23 19:46) Alcohol (01/17/23 19:46) Hydromorphone Injection (Hydromorphone (01/17/23 21:15) Piperacillin/Tazobactam (Piperacillin/Ta (01/17/23 21:57) Ns Iv 1000 Ml (Ns Iv 1000 Ml) (01/17/23 22:28) Ns Iv 1000 Ml (Ns Iv 1000 Ml) (01/17/23 22:34) Ed Admission (Communication) (01/17/23 22:49) Vital Signs/I&O 01/17/23 19:31 Temp 34.3 Pulse 43 Resp 16 B/P (MAP) 167/67 (100) Pulse Ox 99 O2 Delivery Room Air Blood Pressure Mean: 100 Progress Progress Note #1: Progress Note Differential diagnosis includes myocardial infarction, AAA, pancreatitis, cholecystitis, diverticulitis, appendicitis, colitis, gastritis. Peripheral IV established by EMS. Draw labs for complete blood count, comprehensive metabolic profile, coagulation factors, lipase, alcohol level, urinalysis. Electrocardiogram to look for signs of ischemia. Placed on cardiac monitor car operator. Initial interpretation of cardiac telemetry is showing sinus bradycardia with heart rate in the 45-[address] scan of the abdomen and pelvis with IV contrast to evaluate for possible pathology causing his abdominal pain. Since he was still rating his pain 10 out of 10 and ordered another 50 mcg of fentanyl, 15 mg of Toradol, 40 mg of Protonix and normal saline 1 L IV fluid bolus for hydration. Progress Note #2: Time: 21:00 Progress Note Complete blood count had a normal white blood cell count of 7.8. Hemoglobin low normal at 13.1. Comprehensive metabolic profile did not show any acute electrolyte abnormalities other than mild elevation of the glucose to 191. Troponin was less than 0.3. Lipase was negative at 20. Alcohol level was also negative at less than 10. Coagulation factors were normal and not showing coagulopathy. After medications for pain patient reported his pain was down to a [address] scan report of the abdomen pelvis with IV contrast. Progress Note #3: Time: 21:35 Progress Note Patient reports that his pain was back up to a 10 out of 10. Ordered Dilaudid 0.[address] scan of the abdomen and pelvis did come back showing no definite signs for cholecystitis or appendicitis. He did have diffuse edema and fluid in the mesentery concerning for mesenteric congestion. He also had some edema of the small intestines with fluid filled bowel loops. Concerning for en teritis. With his pain getting severe again I will reach out to on-call surgeon, Dr. Maldonado. Lactic acid is still pending at this time. [address] Maldonado, the on-call surgeon. With patient having a normal lactic acid of 1.5 and normal white blood cell count of 7.8 but having edema and fluid in the mesentery and concern for possible ischemic bowel I discussed the case with Dr. Maldonado. He reviewed the images himself. He agreed that if the patient was having ischemic bowel that the patient should have severe abdominal pain with exam as well. At this point the patient is complaining of a 10 out of 10 but does not seem in more distress when palpating his abdomen and pelvis. He also was not having any elevation of the white blood cell count or lactic acid considering his pain started after 130 this afternoon. By now these levels should have been greatly elevated if he was having ischemic bowel. Since there was some delayed findings for enteritis he recommended admission overnight as an observation to the medicine team with him consulting. He recommended continuing IV fluids for hydration, pain and nausea control, Zos yn for possible enteritis. If his pain and symptoms are worsening instead of improving then he could be taken for an exploratory laparotomy. If his symptoms were improving and his labs continue to be stable then he could probably be treated for enteritis. [address] Mills, the on-call hospitalist. Reviewed patient presentation and history as well as concerns for ischemic bowel. Dr. Maldonado recommended admission as an observation patient for pain control and continued fluids and nausea control. Will order Zosyn to help with possible enteritis. If his pain and symptoms are worsening instead of improving then he might require an exploratory laparotomy to look into his pain in further detail. If his symptoms improved then he could hopefully be discharged home. She accepted him for observation admission to the [facility] floor. Initial ECG Impression Date: Jan 17, 2023 Initial ECG Impression Time: 19:33 Initial ECG Rate: 41 Initial ECG Rhythm: S.Anup Initial ECG Comparisson: Changed (10/12/2007 sinus rhythm with heart rate in the 71 range instead of the bradycardia as he has tonight.) Comment My initial interpretation and review his electrocardiogram shows sinus bradycardia with a heart rate 41 bpm. ME interval [address] elevation. He does have Q waves in the inferior leads. QT interval 516 ms with a QTc interval 453 ms. Overall he does have a change from prior tracing done October 12, 2007 when he was sinus rhythm with a heart rate in the 70s. Diagnostic Imaging Diagonstic Imaging: CT Plain Films/CT/US/NM/MRI: abdomen, pelvis Comments NAME: MILAGROS COOK [facility] REC#: [id number] PT STATUS: REG ER : 1945 PHYSICIAN: TWILA MADDOX MD ADMIT DATE: 01/17/23/ER FS Draft Date of Exam:01/17/23 CT ABDOMEN/PELVIS W PROCEDURE: CT abdomen and pelvis with contrast. TECHNIQUE: Multiple contiguous axial images were obtained through the abdomen and pelvis after administration of intravenous contrast. Auto Exposure Controls were utilized during the CT exam to meet ALARA standards for radiation dose reduction. All CT scans use one or more of the following dose optimizing techniques: automated exposure control, MA and/or KvP adjustment based on patient size and exam type or iterative reconstruction. INDICATION: 77-year-old male with epigastric pain and abdominal pain COMPARISONS: None FINDINGS: Lung bases show patchy right basilar infiltrates. No confluent consolidations are seen. There is no effusion or pneumothorax. Cardiac contour is normal. Liver shows uniform attenuation. Gallbladder, spleen, GE junction, stomach and duodenal sweep are unremarkable. Pancreas shows sharp margins. Adrenals are normal. Kidneys show a 2.6 cm Bosniak classification 2 cyst on the right. There is symmetrical perfusion of contrast. There is no evidence of obstructive uropathy. Both ureters are seen intermittently through their course and appear unremarkable. Filled bladder shows 2 separate nodular density along the dome. There is diffuse mesenteric edema with fluid stranding throughout the mesentery. Fluid-filled loops of small bowel with segmental mucosal thickening. There is also fecal material and gas in the colon. The descending colon is mostly decompressed. There is no free air or adenopathy. There is an ectatic mid abdominal aorta measuring 3.1 cm. Nonaneurysmal calcifications extend to the iliac and femoral arteries. Bone windows show no overall gross abnormalities. IMPRESSION: 1. No evidence of cholecystitis or obstructive uropathy. There is also no definite evidence of appendicitis. 2. There is diffuse edema with fluid in the mesentery with possible mesenteric venous congestion. 3. There is segmental mucosal thickening of the small bowel as well as some liquid stool in the proximal large bowel suggesting element of enteritis. 4. Ectatic aorta measuring 3.1 cm in diameter but no evidence of aneurysm. 5. Two separate nodular densities along the dome of the bladder, with the largest measuring approximately 1.8 cm. Correlation with cystoscopy would be of further value. Additional nonemergent findings as described above. Dictated on workstation # [id number] Dict: 01/17/232112 Trans: 01/17/232122 [facility] [id number] Interpreted by: ALEX LARRY MD Electronically signed by: Reviewed: Reviewed by Me Departure Communication (Admissions) Time/Spoke to Admitting Phy: 22:[address] Mills, the on-call hospitalist. Reviewed patient presentation and history as well as concerns for ischemic bowel. Dr. Maldonado recommended admission as an observation patient for pain control and continued fluids and nausea control. Will order Zosyn to help with possible enteritis. If his pain and symptoms are worsening instead of improving then he might require an exploratory laparotomy to look into his pain in further detail. If his symptoms improved then he could hopefully be discharged home. She accepted him for observation admission to the [facility] floor. Time/Spoke to Consulting Phy: 21:[address] Maldonado, the on-call surgeon. With patient having a normal lactic acid of 1.5 and normal white blood cell count of 7.8 but having ed sarai and fluid in the mesentery and concern for possible ischemic bowel I discussed the case with Dr. Maldonado. He reviewed the images himself. He agreed that if the patient was having ischemic bowel that the patient should have severe abdominal pain with exam as well. At this point the patient is complaining of a 10 out of 10 but does not seem in more distress when palpating his abdomen and pelvis. He also was not having any elevation of the white blood cell count or lactic acid considering his pain started after 130 this afternoon. By now these levels should have been greatly elevated if he was having ischemic bowel. Since there was some delayed findings for enteritis he recommended admission overnight as an observation to the medicine team with him consulting. He recommended continuing IV fluids for hydration, pain and nausea control, Zosyn for possible enteritis. If his pain and symptoms are worsening instead of improving then he could be taken for an exploratory laparotomy. If his symptoms were improving and his labs continue to be stable then he could probably be treated for enteritis. Impression Primary Impression: Epigastric abdominal pain Additional Impressions: Enteritis Diarrhea Qualified Codes: R19.7 - Diarrhea, unspecified Disposition: 30 STILL A PATIENT Condition: Stable Admissions Decision to Admit Reason: Admit from ER (General) Decision to Admit/Date: Jan 17, 2023 Time/Decision to Admit Time: 22:00 Departure-Patient Inst. Referrals: JASON ABDI MD (PCP) Primary Care Physician [facility] (Family) Primary Care Physician TWILA MADDOX MD Jan 17, 2023 20:08
[2023-01-17 20:10] LABS: LIPASE 20 U/L (8-78)
[2023-01-17] MEDS ORDERED: HYDROmorphone INJECTION 2 MG/ML VIAL IV STA (21:15)
--- NOTE | 2023-01-17 21:23 | Diagnostic Imaging Report ---
PROCEDURE: CT abdomen and pelvis with contrast. TECHNIQUE: Multiple contiguous axial images were obtained through the abdomen and pelvis after administration of intravenous contrast. Auto Exposure Controls were utilized during the CT exam to meet ALARA standards for radiation dose reduction. All CT scans use one or more of the following dose optimizing techniques: automated exposure control, MA and/or KvP adjustment based on patient size and exam type or iterative reconstruction. INDICATION: 77-year-old male with epigastric pain and abdominal pain COMPARISONS: None FINDINGS: Lung bases show patchy right basilar infiltrates. No confluent consolidations are seen. There is no effusion or pneumothorax. Cardiac contour is normal. Liver shows uniform attenuation. Gallbladder, spleen, GE junction, stomach and duodenal sweep are unremarkable. Pancreas shows sharp margins. Adrenals are normal. Kidneys show a 2.6 cm Bosniak classification 2 cyst on the right. There is symmetrical perfusion of contrast. There is no evidence of obstructive uropathy. Both ureters are seen intermittently through their course and appear unremarkable. Filled bladder shows 2 separate nodular density along the dome. There is diffuse mesenteric edema with fluid stranding throughout the mesentery. Fluid-filled loops of small bowel with segmental mucosal thickening. There is also fecal material and gas in the colon. The descending colon is mostly decompressed. There is no free air or adenopathy. There is an ectatic mid abdominal aorta measuring 3.1 cm. Nonaneurysmal calcifications extend to the iliac and femoral arteries. Bone windows show no overall gross abnormalities. IMPRESSION: 1. No evidence of cholecystitis or obstructive uropathy. There is also no definite evidence of appendicitis. 2. There is diffuse edema with fluid in the mesentery with possible mesenteric venous congestion. 3. There is segmental mucosal thickening of the small bowel as well as some liquid stool in the proximal large bowel suggesting element of enteritis. 4. Ectatic aorta measuring 3.1 cm in diameter but no evidence of aneurysm. 5. Two separate nodular densities along the dome of the bladder, with the largest measuring approximately 1.8 cm. Correlation with cystoscopy would be of further value. Additional nonemergent findings as described above. Dictated by: Dictated on workstation # [id number]
[2023-01-17] MEDS ORDERED: PIPERACILLIN/Tazobactam 4.5 GM in NS (IVPB) 100 ML 100 ML IV STA (21:57)
[2023-01-17] MEDS ORDERED: NS IV 1000 ML 1,000 ML ONE (22:28)
[2023-01-18 00:15] VITALS: BP 148/79
[2023-01-18] MEDS ORDERED: HYDROmorphone INJECTION 2 MG/ML VIAL IV PRN (01:15)
[2023-01-18] MEDS ORDERED: KETOROLAC INJ 15 MG/ML VIAL IV PRN (01:15)
[2023-01-18] MEDS ORDERED: ONDANSETRON INJECTION 4 MG/2 ML (SDV) IV PRN (01:15)
[2023-01-18] MEDS: NS IV 1000 ML 1,000 ML IV SCH ×2 (01:43→08:34)
[2023-01-18 04:00] VITALS: BP 130/71
[2023-01-18] MEDS ORDERED: PIPERACILLIN/Tazobactam 4.5 GM in NS (IVPB) 100 ML 100 ML IV SCH (04:30)
--- NOTE | 2023-01-18 05:27 | Short Stay Summary-Hospitalist ---
History of Present Illness Source: patient Exam Limitations: no limitations Date Seen 01/18/23 Time Seen by a Provider: 11:00 Attending Physician [facility] PCP Admitting Physician: Vicky Mills DO Attending Physician: Vicky Mills DO Referring Physician Date of Admission Jan 18, 2023 at 00:00 Home Medications & Allergies Home Medications Reviewed patient Home Medication Reconciliation performed by pharmacy medication reconciliations electronics technician and/or nursing. Patients Allergies have been reviewed. Allergies Allergies Coded Allergies No Known Drug Allergies (Verified10/12/07) Past Bxxqoco-Ehgbov-Bwznpx Hx Patient Social History Tobacco Use?: No Tobacco type used: Cigarettes Smoking Status: Current Everyday Smoker Use of E-Cig and/or Vaping dev: No Substance use?: No Alcohol Use?: No Alcohol type: Beer Alcohol Frequency: Daily Additional Alcohol Comments: 1 beer per day Pt feels they are or have been: No Immunizations Up To Date Date of Influenza Vaccine: Dec 13, 2018 First/Initial COVID19 Vaccinat: Date? Second COVID19 Vaccination Jacques: Date? Tetanus Booster (TDap): Unknown Seasonal Allergies Seasonal Allergies: No Current Status Advance Directives: No Communicates: Verbally Primary Language: Thai Preferred Spoken Language: Thai Is interpretation needed?: No Past Medical History Currently Using CPAP: No Currently Using BIPAP: No Arthritis, Chronic Back Pain Blood Disorders: No Physical Exam Physical Exam Vital Signs Vital Signs - First Documented 01/17/23 19:31 Temp 34.3 Pulse 43 Resp 16 B/P (MAP) 167/67 (100) Pulse Ox 99 O2 Delivery Room Air Capillary Refill : Less Than 3 Seconds Height, Weight, BMI Height: '" Weight: lbs. oz. kg; 19.94 BMI Method: Results Results/Procedures Labs Laboratory Tests 01/17/23 19:34 Patient resulted labs reviewed. VICKY MILLS DO Jan 18, 2023 05:27
--- NOTE | 2023-01-18 05:28 | Short Stay Summary ---
History of Present Illness History of Present Illness Reason for visit/HPI Chief complaint: Abdominal pain from enteritis HPI: This is a 77-year-old male clinic patient of Dr. Bautista who presented from [facility] with abdominal pain. CT scan showed enteritis but there is a suspicion of ischemic bowel so he was admitted for close observation and general surgery consultation. He left AMA before this examiner evaluated him Date of Admission Jan 18, 2023 at 00:00 Date of Discharge 01/18/2023 Time Seen by Provider: 11:00 Attending Physician [place] Admitting Physician Admitting Physician: Vicky Mills DO Attending Physician: Vicky Mills DO Consult Allergies and Home Medications Allergies Coded Allergies: No Known Drug Allergies (Verified , 10/12/07) Patient Home Medication List Home Medication List Reviewed: Yes No Active Prescriptions or Reported Meds Past Ftpeqos-Dahajr-Rtllle Hx Patient Social History Marrital Status: single Employed/Student: retired Smoking Status: Current Everyday Smoker Recent Hopitalizations: No Alcohol Use?: No Pt feels they are or have been: No Tobacco type used: Cigarettes Immunizations Up To Date Tetanus Booster (TDap): More than 5yrs Date of Influenza Vaccine: Dec 13, 2018 Seasonal Allergies Seasonal Allergies: No Surgeries Yes (LEFT ELBOW (1965).) Respiratory No Currently Using CPAP: No Currently Using BIPAP: No Cardiovascular No Neurological No Reproductive System Hx Reproductive Disorders: No Genitourinary Yes (large bladder tumor) Gastrointestinal No Musculoskeletal Yes Arthritis, Chronic Back Pain Endocrine History of Endocrine Disorders: No HEENT History of HEENT Disorders: No Cancer No Psychosocial History of Psychiatric Problem: No Integumentary History of Skin or Integumenta: No Blood Transfusions History of Blood Disorders: No Review of Systems Constitutional: see HPI Gastrointestinal: abdominal pain Physical Exam Vital Signs Vital Signs - First Documented 01/17/23 19:31 Temp 34.3 Pulse 43 Resp 16 B/P (MAP) 167/67 (100) Pulse Ox 99 O2 Delivery Room Air Capillary Refill : Less Than 3 Seconds Height, Weight, BMI Height: '" Weight: lbs. oz. kg; 19.94 BMI Method: General Appearance: No Apparent Distress, WD/WN Short Stay Diagnosis Discharge Diagnosis-Short Stay Admission Diagnosis: acute abdominal pain Final Discharge Diagnosis: acute abdominal pain due to enteritis Conclusion Labs Laboratory Tests 01/17/23 19:34: White Blood Count 7.8, Red Blood Count 4.14L, Hemoglobin 13.1L, Hematocrit 39L, Mean Corpuscular Volume 95, Mean Corpuscular Hemoglobin 32, Mean Corpuscular Hemoglobin Concent 33, Red Cell Distribution Width 12.5, Platelet Count 201, Mean Platelet Volume 9.6, Immature Granulocyte % (Auto) 0, Neutrophils (%) (Auto) 66, Lymphocytes (%) (Auto) 24, Monocytes (%) (Auto) 8, Eosinophils (%) (Auto) 2, Basophils (%) (Auto) 0, Neutrophils # (Auto) 5.2, Lymphocytes # (Auto) 1.9, Monocytes # (Auto) 0.6, Eosinophils # (Auto) 0.1, Basophils # (Auto) 0.0, Immature Granulocyte # (Auto) 0.0, Prothrombin Time 13.4, INR Comment 1.0, Acti vated Partial Thromboplast Time 27, Sodium Level 139, Potassium Level 3.7, Chloride Level 104, Carbon Dioxide Level 28, Anion Gap 7, Blood Urea Nitrogen 10, Creatinine 0.82, Estimat Glomerular Filtration Rate 92, BUN/Creatinine Ratio 12, Glucose Level 191H, Calcium Level 8.8, Corrected Calcium 8.7, Total Bilirubin 0.4, Aspartate Amino Transf (AST/SGOT) 15, Alanine Aminotransferase (ALT/SGPT) 10, Alkaline Phosphatase 75, Troponin I < 0.30, Pro-B-Type Natriuretic Peptide 52.2, Total Protein 6.7, Albumin 4.1, Lipase 20, Serum Alcohol < 10 01/17/23 21:05: Lactic Acid Level 1.52 Conclusion/Plan Patient left VICKY HOFFMANN DO Jan 18, 2023 05:28
[2023-01-18 06:00] LABS: ALBUMIN 3.2 GM/DL (3.2-4.5); POTASSIUM 4.1 MMOL/L (3.6-5.0)
[2023-01-18 06:03] LABS: TOTAL PROTEIN 5.1 GM/DL (6.4-8.2)
[2023-01-18 06:04] LABS: BILIRUBIN,TOTAL 0.7 MG/DL (0.1-1.0)
[2023-01-18 06:06] LABS: CREATININE SERUM 0.8 MG/DL (0.60-1.30)
[2023-01-18 06:08] LABS: BILIRUBIN,DIRECT 0.2 MG/DL (0.0-0.3); BILIRUBIN,INDIRECT 0.5 MG/DL
[2023-01-18 06:36] LABS: BASOPHILS % (AUTO) 1 % (0-10); EOSINOPHILS # (AUTO) 0.1 10^3/uL (0.0-0.3); EOSINOPHILS % (AUTO) 2 % (0-10); HEMATOCRIT 35 % (40-54); LYMPHOCYTES # (AUTO) 2.4 10^3/uL (1.0-4.0); LYMPHOCYTES % (AUTO) 32 % (12-44); MEAN CORPUSCULAR HEMOGLOBIN 32 pg (25-34); MEAN CORPUSCULAR HGB CONC 35 g/dL (32-36); MEAN CORPUSCULAR VOLUME 93 fL (80-99); MEAN PLATELET VOLUME 9.7 fL (9.0-12.2); MONOCYTES # (AUTO) 0.7 10^3/uL (0.0-1.0); MONOCYTES % (AUTO) 10 % (0-12); NEUTROPHILS # (AUTO) 4.1 10^3/uL (1.8-7.8); NEUTROPHILS % (AUTO) 55 % (42-75); PLATELET COUNT 187 10^3/uL (130-400); WHITE BLOOD COUNT 7.4 10^3/uL (4.3-11.0)
--- NOTE | 2023-01-18 07:36 | Consultation - Surgery ---
TRUE ELIZALDE 01/18/23 0735: History of Present Illness History of Present Illness Patient Consulted On(cindy/time) 01/18/23 07:29 Date Seen by Provider: Jan 18, 2023 Time Seen by Provider: 07:15 History of Present Illness This is a 77 yo male that presented to the ED yesterday with 1 day of 10/10 epigastric abdominal pain that was associated with nausea, diarrhea, and sweating. Pt was given fentanyl and zofran on EMS BELL PERSON with no relief of symptoms. Pain did not radiate Pt admitted for observation and given zosyn and pain medication. This morning, patient is laying in bed comfortably and states that "all the pain is gone. The antibiotics seemed to help". Pt currently has no pain, nausea, vomiting, diarrhea, chest pain, SOA. Pt states that he has an appetite and would like breakfast. CT abd/pelvis showed diffuse mesenteric edema and segmental small bowel thickening with liquid stools in the proximal bowel suggestive of enteritis Allergies and Home Medications Allergies Coded Allergies: No Known Drug Allergies (Verified , 10/12/07) Patient Home Medication List Cyclobenzaprine HCl (Cyclobenzaprine HCl) 10 Mg Tablet, 10 MG PO TID PRN for MUSCLE SPASMS, (Reported) Entered as Reported by: CASIE MALONEY on 10/29/19 1326 Phenazopyridine HCl (Pyridium) 200 Mg Tablet, 1 TAB PO TID PRN for PAIN-MILD (1- 4) Prescribed by: KYLAH ADAMS on 10/30/19 0842 Sulfamethoxazole/Trimethoprim (Bactrim Ds Tablet) 1 Each Tablet, 1 EACH PO BID Prescribed by: KYLAH ADAMS on 10/30/19 0842 Tamsulosin HCl (Flomax) 0.4 Mg Cap, 0.4 MG PO DAILY Prescribed by: LIBERTY PALAFOX on 11/06/19 0010 Past Svjunze-Gnzrsa-Grdeao Hx Patient Social History Smoking Status: Current Everyday Smoker Type Used: Cigarettes Recent Hopitalizations: No Alcohol Use?: No Immunizations Up To Date Tetanus Booster (TDap): More than 5yrs Date of Influenza Vaccine: Dec 13, 2018 Seasonal Allergies Seasonal Allergies: No Surgeries History of Surgeries: Yes (LEFT ELBOW (1965).) Respiratory History of Respiratory Disorde: No Cardiovascular History of Cardiac Disorders: No Neurological History of Neurological Disord: No Reproductive System Hx Reproductive Disorders: No Genitourinary History of Genitourinary Disor: Yes (large bladder tumor) Gastrointestinal History of Gastrointestinal Di: No Musculoskeletal History of Musculoskeletal Dis: Yes Musculoskeletal Disorders: Arthritis, Chronic Back Pain Endocrine History of Endocrine Disorders: No HEENT History of HEENT Disorders: No Cancer History of Cancer: No Psychosocial History of Psychiatric Problem: No Integumentary History of Skin or Integumenta: No Blood Transfusions History of Blood Disorders: No Review of Systems-General Constitutional: No diaphoresis, No fever EENTM: No nose congestion, No throat pain Respiratory: No cough, No short of breath Cardiovascular: No chest pain, No palpitations Gastrointestinal: No abdominal pain, No constipation, No nausea, No vomiting Genitourinary: No dysuria, No hematuria Musculoskeletal: No back pain, No joint pain Skin: No change in color, No rash Psychiatric/Neurological: Denies Anxiety, Denies Depressed Physical Exam-General Problems Physical Exam Vital Signs Vital Signs - First Documented 01/17/23 19:31 Temp 34.3 Pulse 43 Resp 16 B/P (MAP) 167/67 (100) Pulse Ox 99 O2 Delivery Room Air Capillary Refill : Less Than 3 Seconds General Appearance: WD/WN, no apparent distress HEENT: PERRL/EOMI, pharynx normal Neck: full range of motion, supple Respiratory: lungs clear, normal breath sounds, no respiratory distress Cardiovascular: regular rate, rhythm, no edema, no murmur Peripheral Pulses: 2+ Dorsalis Pedis (R), 2+ Left Dors-Pedis (L), 2+ Radial Pulses (R), 2+ Radial Pulses (L) Gastrointestinal: normal bowel sounds, non tender, soft, no organomegaly, other (non-distended) Back: normal inspection, no CVA tenderness Extremities: non-tender, no pedal edema, no calf tenderness Neurologic/Psychiatric: alert, normal mood/affect, oriented x 3 Skin: normal color, warm/dry Lymphatic: no adenopathy Data Review Labs Laboratory Tests 01/17/23 19:34: White Blood Count 7.8, Red Blood Count 4.14L, Hemoglobin 13.1L, Hematocrit 39L, Mean Corpuscular Volume 95, Mean Corpuscular Hemoglobin 32, Mean Corpuscular Hemoglobin Concent 33, Red Cell Distribution Width 12.5, Platelet Count 201, Mean Platelet Volume 9.6, Immature Granulocyte % (Auto) 0, Neutrophils (%) (Auto) 66, Lymphocytes (%) (Auto) 24, Monocytes (%) (Auto) 8, Eosinophils (%) (Auto) 2, Basophils (%) (Auto) 0, Neutrophils # (Auto) 5.2, Lymphocytes # (Auto) 1.9, Monocytes # (Auto) 0.6, Eosinophils # (Auto) 0.1, Basophils # (Auto) 0.0, Immature Granulocyte # (Auto) 0.0, Prothrombin Time 13.4, INR Comment 1.0, Activated Partial Thromboplast Time 27, Sodium Level 139, Potassium Level 3.7, Chloride Level 104, Carbon Dioxide Level 28, Anion Gap 7, Blood Urea Nitrogen 10, Creatinine 0.82, Estimat Glomerular Filtration Rate 92, BUN/Creatinine Ratio 12, Glucose Level 191H, Calcium Level 8.8, Corrected Calcium 8.7, Total Bilirubin 0.4, Aspartate Amino Transf (AST/SGOT) 15, Alanine Aminotransferase ( ALT/SGPT) 10, Alkaline Phosphatase 75, Troponin I < 0.30, Pro-B-Type Natriuretic Peptide 52.2, Total Protein 6.7, Albumin 4.1, Lipase 20, Serum Alcohol < 10 01/17/23 21:05: Lactic Acid Level 1.52 01/18/23 05:34: White Blood Count 7.4, Red Blood Count 3.72L, Hemoglobin 12.0L, Hematocrit 35L, Mean Corpuscular Volume 93, Mean Corpuscular Hemoglobin 32, Mean Corpuscular Hemoglobin Concent 35, Red Cell Distribution Width 12.1, Platelet Count 187, Mean Platelet Volume 9.7, Immature Granulocyte % (Auto) 0, Neutrophils (%) (Auto) 55, Lymphocytes (%) (Auto) 32, Monocytes (%) (Auto) 10, Eosinophils (%) (Auto) 2, Basophils (%) (Auto) 1, Neutrophils # (Auto) 4.1, Lymphocytes # (Auto) 2.4, Monocytes # (Auto) 0.7, Eosinophils # (Auto) 0.1, Basophils # (Auto) 0.0, Immature Granulocyte # (Auto) 0.0, Sodium Level 138, Potassium Level 4.1, Chloride Level 109H, Carbon Dioxide Level 26, Anion Gap 3L, Blood Urea Nitrogen 10, Creatinine 0.80, Estimat Glomerular Filtration Rate 92, BUN/Creatinine Ratio 13, Glucose Level 93, Calcium Level 8.0L, Total Bilirubin 0.7, Aspartate Amino Transf (AST/SGOT) 12, Alanine Aminotransferase (ALT/SGPT) 9, Alkaline Phosphatase 57, Total Protein 5.1L, Albumin 3.2, Lactic Acid Level 0.68, Direct Bilirubin 0.2, Indirect Bilirubin 0.5 Assessment/Plan Assessment/Plan Assessment/Plan Assessment: Enteritis Plan: Advance to clear liquids Continue Zosyn Outpatient colonoscopy recommended CROW GERMAN DO 01/18/23 0911: History of Present Illness History of Present Illness History of Present Illness Consultation for abdominal pain. 77 year old male began having severe abdominal pain around 2 pm. Constant sharp pain. Was not going away. Tried eating chicken soup which didn't help. Since persisted he went to ER to evaluate. Was having nausea and diarrhea as well. Today he is having no pain at all. Tolerating liquids. Denies any new complaints. Had Ct scan suggestive of diffuse mesenteric edema and enteritis. Allergies and Home Medications Allergies Coded Allergies: No Known Drug Allergies (Verified , 10/12/07) Patient Home Medication List Home Medication List Reviewed: Yes Cyclobenzaprine HCl (Cyclobenzaprine HCl) 10 Mg Tablet, 10 MG PO TID PRN for MUSCLE SPASMS, (Reported) Entered as Reported by: CASIE MALONEY on 10/29/19 1326 Phenazopyridine HCl (Pyridium) 200 Mg Tablet, 1 TAB PO TID PRN for PAIN-MILD (1- 4) Prescribed by: KYLAH ADAMS on 10/30/19 0842 Sulfamethoxazole/Trimethoprim (Bactrim Ds Tablet) 1 Each Tablet, 1 EACH PO BID Prescribed by: KYLAH ADAMS on 10/30/19 0842 Tamsulosin HCl (Flomax) 0.4 Mg Cap, 0.4 MG PO DAILY Prescribed by: LIBERTY PALAFOX on 11/06/19 0010 Past Jyhsrrc-Qyshhi-Nencji Hx Patient Social History Smoking Status: Current Everyday Smoker Alcohol Use?: Yes Surgeries History of Surgeries: No Reviewed Nursing Assessment Reviewed/Agree w Nursing PMH: Yes Family Medical History Significant Family History: No Pertinent Family Hx Review of Systems-General Constitutional: No diaphoresis, No fever Gastrointestinal: abdominal pain, diarrhea, nausea; No vomiting Genitourinary: No decreased output, No discharge Musculoskeletal: No back pain, No joint pain Skin: No change in color, No change in hair/nails Psychiatric/Neurological: Denies Anxiety, Denies Depressed, Denies Emotional Problems All Other Systems Reviewed Negative Unless Noted: Yes (Negative excepted noted.) Physical Exam-General Problems Physical Exam General Appearance: no apparent distress, thin HEENT: PERRL/EOMI, normal ENT inspection Neck: non-tender, full range of motion, supple Respiratory: chest non-tender, no respiratory distress, no accessory muscle use Cardiovascular: regular rate, rhythm, no JVD Gastrointestinal: non tender, soft Rectal: deferred Back: no CVA tenderness, no vertebral tenderness Extremities: non-tender, no pedal edema, no calf tenderness Neurologic/Psychiatric: alert, normal mood/affect, oriented x 3 Skin: normal color, warm/dry Lymphatic: no adenopathy Assessment/Plan Assessment/Plan Assessment/Plan generalized abomdinal pain Enteritis Nausea clear liquids advance as tolerates On Zosyn Okay with dc home if tolerates diet today. If any return of symptoms be seen at that time. Never had colonoscopy would recommend outpatient colonoscopy will have him follow up in 3 weeks. Supervisory-Addendum Brief Verification & Attestation Participated in pt care: history, MDM, physical Personally performed: exam, history, MDM, supervision of care Care discussed with: Medical Student Procedures: n/a Results interpretation: Verified all documentation Verification and Attestation of Medical Student E/M Service A medical student performed and documented this service in my presence. I reviewed and verified all information documented by the medical student and made modifications to such information, when appropriate. I personally performed the physical exam and medical decision making. Crow German, Jan 18, 2023,09:13 TRUE ELIZALDE Jan 18, 2023 07:35 CROW GERMAN DO Jan 18, 2023 09:11
[2023-01-18 07:46] VITALS: BP 156/67
[2023-01-18] MEDS ORDERED: NICOTINE 21 MG PATCH TD SCH (09:00)
[2023-01-18 11:46] VITALS: BP 139/69
== END 2023-01-18 12:20 | disposition left against medical advice (07) ==
LOC: EDUNIT# 19:31 → ER FS 19:32 → INTOOBSV 01-18 → 4TH 01-18 → OBSVTOIN 01-18
PROVIDERS: ADMIT Internal Medicine; ATTEND Internal Medicine
DX: K52.9 Noninfective gastroenteritis and colitis, unspecified (principal); R10.13 Epigastric pain; F17.210 Nicotine dependence, cigarettes, uncomplicated
CPT/HCPCS: 36415; 74177; 80048; 80053; 80076; 80320; 83605; 83690; 83880; 84484; 85025; 85610; 85730; 93005; 96361; 96365; 96375; 96376; Q9967